=== PATIENT | male | born 1960 | race Caucasian/White ===

== ENCOUNTER 2019-04-16 18:03 | Emergency (ER) | payer OTHER ==
[~2019-04-16] VITALS: Ht 170.2 cm; Wt 94.8 kg
--- NOTE | 2019-04-16 18:05 | NUR ---
bib family c/o non-radiating midsternal cp on/off x 2 weeks, also c/o sob. Patient a/ox4, changed into gown,a ttached to the satellite project site monitor. IV line established onl eft ac g18. EKG ordered. EMT at bedside. Blood drawn and sent to lab.
[2019-04-16] MEDS ORDERED: ASPIRIN 325 MG TABLET PO ONE (18:30)
[2019-04-16 18:34] LABS: BASOPHILS % (AUTO) 0.4 % (0.0-2.0); EOSINOPHILS % (AUTO) 2.9 % (0.0-6.0); HEMATOCRIT 43 % (39-51); HEMOGLOBIN 14.7 g/dL (13.5-17.5); LYMPHOCYTES # (AUTO) 3.5 /CMM (0.8-4.8); LYMPHOCYTES % (AUTO) 46.5 % (20.0-44.0); MEAN CORPUSCULAR HGB CONC 35 g/dl (31.0-36.0); MEAN CORPUSCULAR VOLUME 88 fL (80-96); MONOCYTES # (AUTO) 0.5 /CMM (0.1-1.30); MONOCYTES % (AUTO) 7.3 % (2.0-12.0); NEUTROPHILS # (AUTO) 3.2 /CMM (1.8-8.9); NEUTROPHILS % (AUTO) 42.9 % (43.0-81.0); PLATELET COUNT (AUTO) 202 /CMM (150-450); RED BLOOD CELL COUNT(AUTO) 4.85 MIL/uL (4.5-6.0); WHITE BLOOD COUNT (AUTO) 7.5 K/uL (4.3-11.0)
[2019-04-16] MEDS ORDERED: ASPIRIN 325 MG TABLET ONE (18:40)
--- NOTE | 2019-04-16 18:42 | NUR ---
Patient is resting comfortably in bed with eyes closed. Easily aroused. VSS
[2019-04-16 18:51] LABS: CALCIUM, SERUM 8.7 mg/dL (8.5-10.1); CREATININE 0.9 mg/dL (0.6-1.3); POTASSIUM 3.8 mmol/L (3.5-5.1)
--- NOTE | 2019-04-16 19:01 | NUR ---
MELT ROOM OPERATOR AT BEDSIDE FOR CXR.
--- NOTE | 2019-04-16 19:02 | NUR ---
REPORT REC'D FROM [facility] FOR [facility].
--- NOTE | 2019-04-16 20:05 | NUR ---
DR BHAT IS AT THE BEDSIDE SPEAKING TO THE PT.
--- NOTE | 2019-04-16 20:32 | NUR ---
IV removed. Catheter intact and site benign. Pressure and 4x4 applied to site. No bleeding noted. Patient discharged to home in stable condition. Written and verbal after care instructions given. Patient verbalizes understanding of instruction AND RX. PT AMBULATED OUT WITH A STEADY GAIT. VSS. NAD NOTED.
[2019-04-16 20:34] VITALS: BP 132/96
== END 2019-04-16 20:34 | disposition home or self-care (01) ==
LOC: ER 18:06
DX: R07.89 Other chest pain (principal); I10 Essential (primary) hypertension; F10.10 Alcohol abuse, uncomplicated; Y90.9 Presence of alcohol in blood, level not specified
CPT/HCPCS: 36415; 71045-TC; 80048-TC; 84484-TC; 85025-TC